=== PATIENT | female | born 1980 | race Caucasian/White ===

== ENCOUNTER 2017-08-16 11:35 | Inpatient (IN) ==
--- NOTE | 2017-08-16 11:51 | Emergency Department Note ---
Disposition Clinical Impression: Suicidal ideation Disposition: Admitted As Inpatient Condition: Fair Referrals: NONE,PCP [Primary Care Provider] - Forms: ED Satisfaction Letter Time of Disposition: 14:41 Psych HPI - General Chief Complaint: ED Psychiatric Symptoms Stated Complaint: SI/Depression/Need 1A Time Seen by Provider: 08/16/17 11:42 Source: patient, family Mode of arrival: ambulatory Limitations: no limitations Nursing Notes Reviewed: Yes Vital Signs Reviewed: Yes - History of Present Illness HPI Narrative: Patient feels depressed, suicidal, anxious. She wants to speak to a incident response specialist today. She reports several life stressors. Pt complaint: suicidal ideation, feels depressed, anxiety Onset (ago): month(s) Duration: intermittent History of similar episodes: Yes Improves with: none Worsens with: none Alleged intoxication: No Associated Psychiatric Symptoms: depression, suicidal ideation, anxiety Traumatic symptoms: denies traumatic injury Self harm or harm to others: admits thoughts of self harm, has plan, other ( Patient states she took an entire bottle of trazodone approximately 1-1/2 weeks ago) - Related Data Previous Rx's Medication Instructions Recorded Azithromycin [Azithromycin 6-Tab 250 mg PO PER PKG DI #6 tab 03/11/17 Pack] Loratadine [Allergy Relief] 10 mg PO DAILY #30 tablet 03/11/17 Promethazine/Dextromethorphan 5 ml PO Q6HR PRN #120 ml 03/11/17 [Promethazine-Dm Syrup] Cyclobenzaprine [Flexeril] 10 mg PO BID PRN #6 tablet 03/30/17 Naproxen 500 mg PO BID PRN #10 tablet 03/30/17 Ibuprofen [Motrin] 600 mg PO Q6HR PRN 7 Days tab 04/01/17 diazePAM [Valium] 5 mg PO TID PRN 2 Days tablet 04/01/17 Allergies Allergy/AdvReac Type Severity Reaction Status Date / Time Penicillins [PCN] Allergy Hives Verified 08/16/17 11:37 cephalexin [From Keflex] AdvReac Dizziness Verified 08/16/17 11:37 tuna AdvReac Vomiting Uncoded 08/16/17 11:37 All systems ED: reviewed and negative except as stated. Constitutional: Reports: as per HPI Eyes: Reports: as per HPI ENT ED: Reports: as per HPI Cardiovascular: Reports: as per HPI Respiratory: Reports: as per HPI Gastrointestinal: Reports: as per HPI Genitourinary: Reports: as per HPI Musculoskeletal: Reports: as per HPI Integumentary: Reports: as per HPI Neurological: Reports: as per HPI Psychiatric: Reports: anxiety, depression, suicidal thoughts Endocrine: Reports: as per HPI Hematological/Lymphatic: Reports: as per HPI Allergic/Immunologic: Reports: as per HPI Past Medical History - Past Medical History Source: patient Medical history: Reports: diabetes Psychiatric history: Reports: anxiety, bipolar, depression, PTSD, 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 - Social History Smoking Status: Current every day smoker Smokeless Tobacco Status: No Alcohol use: Reports: occasionally Drug use: Reports: marijuana Physical Exam - General Limitations: no limitations General appearance: alert, in no apparent distress - Head Head exam: atraumatic - Eye Eye exam: Present: normal appearance - ENT ENT exam: normal exam - Neck Neck exam: Present: normal inspection, full ROM - Chest Chest inspection: Present: normal inspection, symmetric chest wall rise - Respiratory Respiratory exam: Present: normal lung sounds bilaterally - Cardiovascular Cardiovascular exam: Present: regular rate, normal rhythm, normal heart sounds - Rectal Exam Rectal exam: Present: deferred - Extremities Exam Extremities exam: Present: normal inspection - Neurological Exam Neurological exam: Present: alert, oriented X3, CN II-XII intact - Psychiatric Psychiatric exam: Present: normal affect, normal mood - Skin Skin exam: Present: warm, dry, intact Course Course Narrative: Patient presents feeling anxious depressed and suicidal. I will attempt to clear her medically for behavioral evaluation. Vital Signs Temperature 98.1 F 08/16/17 11:38 Pulse Rate 87 08/16/17 11:38 Respiratory Rate 20 08/16/17 11:38 Blood Pressure 146/83 08/16/17 11:38 O2 Sat by Pulse Oximetry 99 08/16/17 11:38 Temperature 98.1 F 08/16/17 11:42 Pulse Rate 87 08/16/17 11:42 Respiratory Rate 20 08/16/17 11:42 Blood Pressure 146/83 08/16/17 11:42 O2 Sat by Pulse Oximetry 99 08/16/17 11:42 Oxygen Delivery Oxygen Delivery Room Air Psych - Lab Data Lab results reviewed: Yes I reviewed the patient's lab results. Result diagrams: 08/16/17 11:54 08/16/17 11:54 Lab Results 08/16/17 08/16/17 08/16/17 Range/Units 11:43 11:54 11:54 WBC 6.9 (4.3-11.1) K/mcL RBC 4.92 (3.82-4.97) M/mcL Hgb 13.3 (11.5-15.4) g/dL Hct 40.6 (35.3-44.9) % MCV 82.5 L (83.0-100.0) fL MCH 27.0 L (28.0-33.3) pg MCHC 32.8 (31.6-35.5) g/dL RDW 13.5 (11.5-14.5) % Plt Count 207 (140-400) K/mcL MPV 9.7 (9.4-12.4) fL Immature Gran % 0.3 (0-4) % Seg Neutrophils % 59.9 % Lymphocytes % 33.1 % Monocytes % 5.3 % Eosinophils % 1.3 % Basophils % 0.1 % Neutrophils # 4.1 (1.6-8.9) K/mcL Lymphocytes # 2.3 (0.6-4.6) K/mcL Monocytes # 0.4 (0.0-1.3) K/mcL Eosinophils # 0.1 (0.0-0.6) K/mcL Basophils # 0.0 (0.0-0.2) K/mcL Sodium 137 (136-145) mEq/L Potassium 3.8 (3.5-5.1) mEq/L Chloride 106 (98-107) mEq/L Carbon Dioxide 24 (23-29) mEq/L BUN 9 (6-20) mg/dL Creatinine 0.58 L (0.60-1.20) mg/dL Est GFR ( Amer) > 60 (> 60) Est GFR (Non-Af Amer) > 60 (> 60) BUN/Creatinine Ratio 16 (6-26) Glucose 284 H (70-105) mg/dL Calculated Osmolality 293 (280-300) Calcium 9.1 (8.6-10.3) mg/dL Total Bilirubin 0.4 (0.3-1.0) mg/dL Direct Bilirubin 0.1 (0.0-0.2) mg/dL Indirect Bilirubin 0.3 (0.0-1.2) mg/dL AST 8 L (13-39) Units/L ALT 13 (7-52) Units/L Alkaline Phosphatase 77 (34-104) Units/L Serum Total Protein 6.8 (6.4-8.9) g/dL Albumin 4.1 (3.5-5.7) g/dL Globulin 2.7 (2.4-3.5) g/dL Albumin/Globulin Ratio 1.5 (1.1-2.2) Urine Test Negative (Negative) Salicylates < 2.5 L (15.0-30.0) mg/dL Urine Opiates Screen (Kzttaf=473) ng/mL Acetaminophen < 10 L (10-20) mcg/mL Ur Barbiturates Screen (Kepcvv=859) ng/mL Ur Phencyclidine Scrn (Cutoff=25) ng/mL Ur Amphetamines Screen (Fwhmbg=7735) ng/mL U Benzodiazepines Scrn (Wjcgtt=964) ng/mL Urine Cocaine Screen (Cutoff= 300) ng/mL U Marijuana (THC) Screen (Cutoff = 50) ng/mL Ur Drug Screen Interp Ethyl Alcohol < 10 (Less than 10) mg/dL 08/16/17 Range/Units 12:30 WBC (4.3-11.1) K/mcL RBC (3.82-4.97) M/mcL Hgb (11.5-15.4) g/dL Hct (35.3-44.9) % MCV (83.0-100.0) fL MCH (28.0-33.3) pg MCHC (31.6-35.5) g/dL RDW (11.5-14.5) % Plt Count (140-400) K/mcL MPV (9.4-12.4) fL Immature Gran % (0-4) % Seg Neutrophils % % Lymphocytes % % Monocytes % % Eosinophils % % Basophils % % Neutrophils # (1.6-8.9) K/mcL Lymphocytes # (0.6-4.6) K/mcL Monocytes # (0.0-1.3) K/mcL Eosinophils # (0.0-0.6) K/mcL Basophils # (0.0-0.2) K/mcL Sodium (136-145) mEq/L Potassium (3.5-5.1) mEq/L Chloride (98-107) mEq/L Carbon Dioxide (23-29) mEq/L BUN (6-20) mg/dL Creatinine (0.60-1.20) mg/dL Est GFR ( Amer) (> 60) Est GFR (Non-Af Amer) (> 60) BUN/Creatinine Ratio (6-26) Glucose (70-105) mg/dL Calculated Osmolality (280-300) Calcium (8.6-10.3) mg/dL Total Bilirubin (0.3-1.0) mg/dL Direct Bilirubin (0.0-0.2) mg/dL Indirect Bilirubin (0.0-1.2) mg/dL AST (13-39) Units/L ALT (7-52) Units/L Alkaline Phosphatase (34-104) Units/L Serum Total Protein (6.4-8.9) g/dL Albumin (3.5-5.7) g/dL Globulin (2.4-3.5) g/dL Albumin/Globulin Ratio (1.1-2.2) Urine Test (Negative) Salicylates (15.0-30.0) mg/dL Urine Opiates Screen Negative ([place]=090) ng/mL Acetaminophen (10-20) mcg/mL Ur Barbiturates Screen Negative (Yflcop=976) ng/mL Ur Phencyclidine Scrn Negative (Cutoff=25) ng/mL Ur Amphetamines Screen Negative (Qktmcr=5255) ng/mL U Benzodiazepines Scrn Negative (Wefgff=209) ng/mL Urine Cocaine Screen Negative (Cutoff= 300) ng/mL U Marijuana (THC) Screen Positive H (Cutoff = 50) ng/mL Ur Drug Screen Interp See Below Ethyl Alcohol (Less than 10) mg/dL Psychiatric Medical Clearance - Medical Clearance Checklist Medical History: No Social History Section defined Current Vitals: Last Vital Signs Temp 98.1 F 08/16/17 11:42 Pulse 87 08/16/17 11:42 Resp 20 08/16/17 11:42 BP 146/83 08/16/17 11:42 Pulse Ox 99 08/16/17 11:42 Psychiatric Lab Panel: Drug Levels and Toxicity 08/16/17 08/16/17 11:54 12:30 Urine Opiates Screen Negative Acetaminophen < 10 L Ur Barbiturates Screen Negative Ur Phencyclidine Scrn Negative Ur Amphetamines Screen Negative U Benzodiazepines Scrn Negative Urine Cocaine Screen Negative U Marijuana (THC) Screen Positive H Ethyl Alcohol < 10 Abnormal Labs: Abnormal lab results MCV 82.5 fL (83.0-100.0) L 08/16/17 11:54 MCH 27.0 pg (28.0-33.3) L 08/16/17 11:54 Creatinine 0.58 mg/dL (0.60-1.20) L 08/16/17 11:54 Glucose 284 mg/dL (70-105) H 08/16/17 11:54 AST 8 Units/L (13-39) L 08/16/17 11:54 Salicylates < 2.5 mg/dL (15.0-30.0) L 08/16/17 11:54 Acetaminophen < 10 mcg/mL (10-20) L 08/16/17 11:54 U Marijuana (THC) Screen Positive ng/mL (Cutoff = 50) H 08/16/17 12:30 Statement of Medical Clearance: I have evaluated the patient, reviewed diagnostic information, and certify that the patient's medical condition is sufficiently stable that transfer to the psychiatric unit does not pose a significant risk of deterioration.
[2017-08-16 12:02] LABS: Basophils % 0.1 %; Eosinophils # 0.1 K/mcL (0.0-0.6); Eosinophils % 1.3 %; Hematocrit 40.6 % (35.3-44.9); Hemoglobin 13.3 g/dL (11.5-15.4); Immature Granulocytes % 0.3 % (0-4); Lymphocytes # 2.3 K/mcL (0.6-4.6); Lymphocytes % 33.1 %; Mean Corpuscular HGB Conc 32.8 g/dL (31.6-35.5); Mean Corpuscular Volume 82.5 fL (83.0-100.0); Mean Platelet Volume 9.7 fL (9.4-12.4); Monocytes # 0.4 K/mcL (0.0-1.3); Monocytes % 5.3 %; Neutrophils # 4.1 K/mcL (1.6-8.9); Platelet Count 207 K/mcL (140-400); Red Blood Count 4.92 M/mcL (3.82-4.97); Red Cell Distribution Width 13.5 % (11.5-14.5); Segmented Neutrophils % 59.9 %
[2017-08-16 12:28] LABS: Acetaminophen < 10 mcg/mL (10-20); Alanine Aminotransferase 13 Units/L (7-52); Albumin 4.1 g/dL (3.5-5.7); Albumin/Globulin Ratio 1.5 (1.1-2.2); Alkaline Phosphatase 77 Units/L (34-104); Aspartate Amino Transferase 8 Units/L (13-39); BUN/Creatinine Ratio 16 (6-26); Bilirubin,Direct 0.1 mg/dL (0.0-0.2); Bilirubin,Indirect 0.3 mg/dL (0.0-1.2); Bilirubin,Total 0.4 mg/dL (0.3-1.0); Blood Urea Nitrogen 9 mg/dL (6-20); Calcium 9.1 mg/dL (8.6-10.3); Carbon Dioxide 24 mEq/L (23-29); Chloride 106 mEq/L (98-107); Ethanol < 10 mg/dL (Less than 10); Globulin 2.7 g/dL (2.4-3.5); Glucose 284 mg/dL (70-105); Osmolality,Calculated 293 (280-300); Potassium 3.8 mEq/L (3.5-5.1); Salicylate < 2.5 mg/dL (15.0-30.0); Sodium 137 mEq/L (136-145); Total Protein 6.8 g/dL (6.4-8.9); eGFR For African Americans > 60 (> 60); eGFR For Non-African Americans > 60 (> 60)
[2017-08-16 13:11] LABS: Amphetamine Screen,Urine Negative ng/mL (Cutoff=1000); Barbiturate Screen,Urine Negative ng/mL (Cutoff=200); Benzodiazepines Screen,Urine Negative ng/mL (Cutoff=200); Cannabinoid Screen,Urine Positive ng/mL (Cutoff = 50); Cocaine Screen,Urine Negative ng/mL (Cutoff= 300); Opiate Screen,Urine Negative ng/mL (Cutoff=300); Phencyclidine Screen,Urine Negative ng/mL (Cutoff=25)
[2017-08-16] MEDS ORDERED: Ibuprofen 400 MG TABLET PO PRN (15:08)
[2017-08-16] MEDS ORDERED: traZODone 50 MG TABLET PO PRN (15:08)
[2017-08-16] MEDS ORDERED: Haloperidol Lactate 5 MG/ML VIAL IM PRN (15:08)
[2017-08-16] MEDS ORDERED: MOM Conc 10 ML UD.LIQ PO PRN (15:08)
[2017-08-16] MEDS ORDERED: Mag Hydrox/Al Hydrox/Simeth 30 ML UDC PO PRN (15:08)
[2017-08-16] MEDS ORDERED: *HR* LORazepam 2 MG/ML VIAL IM PRN (15:08)
[2017-08-16] MEDS ORDERED: *HR* LORazepam 1 MG TABLET PO PRN (15:08)
[2017-08-16] MEDS ORDERED: hydrOXYzine pamoate 25 MG CAPSULE PO PRN (15:08)
[2017-08-16] MEDS ORDERED: Nicotine 2 MG GUM BC PRN (15:08)
[2017-08-16] MEDS: *HR* Metformin 500 MG TABLET PO SCH (22:00)
[2017-08-16] MEDS: CETIRIZINE 10MG PO SCH (22:01)
[2017-08-17] MEDS ORDERED: Loratadine 10 MG TABLET PO SCH (09:00)
--- NOTE | 2017-08-17 09:53 | Psychiatry History & Physical ---
Date of Encounter: 08/17/17 Time of Encounter: 09:46 History of Present Illness Patient Stated Chief Complaint: SI Medicare Admission Attestation: For traditional Medicare patients the provided hospital inpatient services are reasonable and necessary and in the case of services not specified as inpatient -only under 42 CFR 419.22 (n), that they are appropriately provided as inpatient services in accordance 42 CFR 412.3. For Critical Access Hospital the patient may reasonably be expected to be discharged or transferred to a hospital within 96 hours after admission to the Critical Access Hospital. Admitted From: Home Plans for Post Hospital Care: Home History of Present Illness: Ms. Simeon is a 36 year old female who was admitted with SI. Has a longstanding history of depression and she has received multiple diagnoses over the years including Bipolar Disorder, Borderline Personality Disorder, PTSD, and OCD. Has been in counseling off and on since the age of [age] but has not seen a Psychiatrist in approx. ten years. Remembers trying Abilify, Wellbutrin , Zoloft, [place], and Buspar in the past with no effect. Reports she has attempted suicide 3-4 times in her life but this is her first admission. Physically she is treated for Type II Diabetes and Allergies. 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 Has chronic pain in her knees, back, and teeth. 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 Has support from a boyfriend and roommate. Occasionally smokes THC but no other drugs of abuse. Discussed an SNRI like Effexor. Client has trouble with motivation and lethargy so a boost from norepinephrine might be useful. Medication might also help with some of her chronic pain issues. Will get her set up with services in the community as well. Past Med Surg Social Fam HX - Past Medical History Medical history: diabetes - Past Psychiatric History Psychiatric history: Reports: anxiety, bipolar, depression, prior suicide attempt Family psychiatric history: Unknown Family History of Suicide: Unknown - Social History Smoking Status: Current every day smoker Smokeless Tobacco Status: No Alcohol use: occasionally Drug use: marijuana Medications & Allergies 3 Allergy/AdvReac Type Severity Reaction Status Date / Time Penicillins [PCN] Allergy Hives Verified 08/16/17 11:37 cephalexin [From Keflex] AdvReac Dizziness Verified 08/16/17 11:37 tuna AdvReac Vomiting Uncoded 08/16/17 11:37 Review of Systems Constitutional: Reports: weakness Eyes: Denies: eye pain, vision change Ears, Nose, Throat: Denies: ear pain, throat pain, dental pain, hearing loss, congestion Cardiovascular: Denies: chest pain, palpitations, dyspnea on exertion Respiratory: Denies: cough, dyspnea, wheezes Gastrointestinal: Denies: abdominal pain, nausea, vomiting, diarrhea, constipation Genitourinary female: Denies: urgency, dysuria, frequency, abnormal menses, dyspareunia Musculoskeletal: Reports: back pain, myalgia Integumentary: Denies: rash, lesions, pruritus Neurological: Denies: headache, weakness, numbness, memory loss Endocrine: Denies: fatigue, heat or cold intolerance Hematologic/Lymphatic: Denies: easy bruising, lymphadenopathy Allergic/Immunologic: Denies: urticaria, itchy eyes Exam - HEENT Head exam IM: Present: atraumatic Eye exam IM: Present: EOMI, normal appearance, PERRL ENT exam IM: Present: normal exam - Neurological Neurological exam: Present: CN II-XII intact - Respiratory Respiratory exam IM: Present: CTAB - GI/Abdominal GI/Abdominal exam IM: Present: normal bowel sounds, soft. Absent: tenderness - Extremities Extremities exam IM: Present: full ROM - Skin Skin exam IM: Present: dry, warm - Constitutional Vitals: Temp Pulse Resp BP Pulse Ox 97.7 F 79 16 123/71 99 08/16/17 19:49 08/16/17 19:49 08/16/17 19:49 08/16/17 19:49 08/16/17 11:42 General appearance: age & developmentally appropriate, well-groomed, well- nourished - Musculoskeletal Gait: normal Station: relaxed Strength & Tone: normal for patient - Psychiatric Patient Orientation: Yes Person, Yes Time, Yes Place Level of alertness: Alert Behavior: calm, cooperative Psychomotor activity: Normal Eye Contact: Maintains Eye Contact Mood Description: Depressed Affect description: congruent with mood Speech Volume: Normal Speech pattern: normal rate, normal rhythm, normal tone, fluent, spontaneous Language & Vocabulary: consistent with education Thought Process: Linear Thought Content: Yes Suicidal ideation, No Homicidal ideation, No Overt delusions Perceptual Disturbances: No Auditory hallucinations, No Visual hallucinations Attention Span Ability: Capable of Focused Attention Memory Description: Grossly Intact Patient Reliability: Reliable Historian Fund of knowledge: Yes abstraction ability, Yes average, Yes aware of current events Intelligence Estimate: Average Judgment: Limited Insight: Partial Results - Labs Labs: Laboratory Last Values WBC 6.9 K/mcL (4.3-11.1) 08/16/17 11:54 RBC 4.92 M/mcL (3.82-4.97) 08/16/17 11:54 Hgb 13.3 g/dL (11.5-15.4) 08/16/17 11:54 Hct 40.6 % (35.3-44.9) 08/16/17 11:54 MCV 82.5 fL (83.0-100.0) L 08/16/17 11:54 MCH 27.0 pg (28.0-33.3) L 08/16/17 11:54 MCHC 32.8 g/dL (31.6-35.5) 08/16/17 11:54 RDW 13.5 % (11.5-14.5) 08/16/17 11:54 Plt Count 207 K/mcL (140-400) 08/16/17 11:54 MPV 9.7 fL (9.4-12.4) 08/16/17 11:54 Immature Gran % 0.3 % (0-4) 08/16/17 11:54 Seg Neutrophils % 59.9 % 08/16/17 11:54 Lymphocytes % 33.1 % 08/16/17 11:54 Monocytes % 5.3 % 08/16/17 11:54 Eosinophils % 1.3 % 08/16/17 11:54 Basophils % 0.1 % 08/16/17 11:54 Neutrophils # 4.1 K/mcL (1.6-8.9) 08/16/17 11:54 Lymphocytes # 2.3 K/mcL (0.6-4.6) 08/16/17 11:54 Monocytes # 0.4 K/mcL (0.0-1.3) 08/16/17 11:54 Eosinophils # 0.1 K/mcL (0.0-0.6) 08/16/17 11:54 Basophils # 0.0 K/mcL (0.0-0.2) 08/16/17 11:54 Sodium 137 mEq/L (136-145) 08/16/17 11:54 Potassium 3.8 mEq/L (3.5-5.1) 08/16/17 11:54 Chloride 106 mEq/L (98-107) 08/16/17 11:54 Carbon Dioxide 24 mEq/L (23-29) 08/16/17 11:54 BUN 9 mg/dL (6-20) 08/16/17 11:54 Creatinine 0.58 mg/dL (0.60-1.20) L 08/16/17 11:54 Est GFR ( Amer) > 60 (> 60) 08/16/17 11:54 Est GFR (Non-Af Amer) > 60 (> 60) 08/16/17 11:54 BUN/Creatinine Ratio 16 (6-26) 08/16/17 11:54 Glucose 284 mg/dL (70-105) H 08/16/17 11:54 POC Glucose 267 mg/dL (70-99) H 08/16/17 21:06 Calculated Osmolality 293 (280-300) 08/16/17 11:54 Calcium 9.1 mg/dL (8.6-10.3) 08/16/17 11:54 Total Bilirubin 0.4 mg/dL (0.3-1.0) 08/16/17 11:54 Direct Bilirubin 0.1 mg/dL (0.0-0.2) 08/16/17 11:54 Indirect Bilirubin 0.3 mg/dL (0.0-1.2) 08/16/17 11:54 AST 8 Units/L (13-39) L 08/16/17 11:54 ALT 13 Units/L (7-52) 08/16/17 11:54 Alkaline Phosphatase 77 Units/L (34-104) 08/16/17 11:54 Serum Total Protein 6.8 g/dL (6.4-8.9) 08/16/17 11:54 Albumin 4.1 g/dL (3.5-5.7) 08/16/17 11:54 Globulin 2.7 g/dL (2.4-3.5) 08/16/17 11:54 Albumin/Globulin Ratio 1.5 (1.1-2.2) 08/16/17 11:54 Urine Test Negative (Negative) 08/16/17 11:43 Salicylates < 2.5 mg/dL (15.0-30.0) L 08/16/17 11:54 Urine Opiates Screen Negative ng/mL (Ocxcwo=553) 08/16/17 12:30 Acetaminophen < 10 mcg/mL (10-20) L 08/16/17 11:54 Ur Barbiturates Screen Negative ng/mL (Sehzpp=494) 08/16/17 12:30 Ur Phencyclidine Scrn Negative ng/mL (Cutoff=25) 08/16/17 12:30 Ur Amphetamines Screen Negative ng/mL (Akkeog=1510) 08/16/17 12:30 U Benzodiazepines Scrn Negative ng/mL (Qsqjql=885) 08/16/17 12:30 Urine Cocaine Screen Negative ng/mL (Cutoff= 300) 08/16/17 12:30 U Marijuana (THC) Screen Positive ng/mL (Cutoff = 50) H 08/16/17 12:30 Ur Drug Screen Interp See Below 08/16/17 12:30 Ethyl Alcohol < 10 mg/dL (Less than 10) 08/16/17 11:54 Assessment and Plan (1) Major depress dis, severe Current visit: Yes Status: Acute Plan: Admit inpatient for safety and stabilization, Close observation, Suicide Precautions per unit protocol, Encourage participation in unit milieu, Group Therapy, Monitor sleep, Monitor appetite Risks, benefits, side effects, alternatives discussed w/pt: Yes Patient agreeable to treatment: Yes Plans for Post Hospital Care: Home Estimated Length of Stay (Days): 4
[2017-08-17] MEDS: Venlafaxine XR (24 HR) 37.5 MG CAP.ER.24H PO SCH (09:55)
[2017-08-17] MEDS ORDERED: *HR* Metformin 500 MG TABLET PO SCH (16:00)
[2017-08-17] MEDS: *HR* Metformin 500 MG TABLET PO SCH (16:48)
[2017-08-17] MEDS: CETIRIZINE 10MG PO SCH (21:38)
[2017-08-18] MEDS: Venlafaxine XR (24 HR) 37.5 MG CAP.ER.24H PO SCH (08:49)
--- NOTE | 2017-08-18 10:16 | Psychiatry Progress Note ---
Date of Encounter: 08/18/17 Time of Encounter: 10:13 Subjective Interval history: Pleasant today. Looks tired. States she did not sleep well last night. Slept too much during the daytime and then had a new roommate admitted during the middle of the night. Claims all she wants to do is hide in her room today. Took first dose of medication. Tolerated it fine. Has a bit of an upset stomach but it is very hard to say if this is related to the medication or not. Agreeable to increasing dose today. Likely will not be effective for her at current dose but wanted to make sure she would tolerate it before giving her a higher dose. SI has improved but still struggling with mood. Claims she feels like "I'm just here." Review of Systems Constitutional: Denies: fever, chills, weakness, weight change Eyes: Denies: eye pain, vision change Ears, Nose, Throat: Denies: ear pain, throat pain, dental pain, hearing loss, congestion Cardiovascular: Denies: chest pain, palpitations, dyspnea on exertion Respiratory: Denies: cough, dyspnea, wheezes Gastrointestinal: Denies: abdominal pain, nausea, vomiting, diarrhea, constipation Musculoskeletal: Denies: joint swelling, joint pain Neurological: Denies: headache, weakness, numbness, memory loss Results - Vital Signs Vital Signs: Temp Pulse Resp BP Pulse Ox 97.2 F L 77 18 116/74 99 08/18/17 09:00 08/18/17 09:00 08/18/17 09:00 08/18/17 09:00 08/16/17 11:42 - Labs Labs: Laboratory Results - last 24 hr 08/17/17 08/17/17 08/18/17 11:47 20:13 08:50 POC Glucose 290 H 208 H 218 H Assessment and Plan (1) Major depress dis, severe Current visit: Yes Status: Acute Plan: Continue hospitalization, Close observation, Suicide Precautions per unit protocol, Encourage participation in unit milieu, Group Therapy, Monitor sleep, Monitor appetite Risks, benefits, side effects, alternatives discussed w/pt: Yes Patient agreeable to treatment: Yes Consult Discharge Plan - Plan Referrals: NONE,PCP [Primary Care Provider] - Psychiatry Exam - Constitutional Vitals: Temp Pulse Resp BP Pulse Ox 97.2 F L 77 18 116/74 99 08/18/17 09:00 08/18/17 09:00 08/18/17 09:00 08/18/17 09:00 08/16/17 11:42 General appearance: age & developmentally appropriate, well-groomed, well- nourished - Musculoskeletal Gait: normal Station: relaxed Strength & Tone: normal for patient - Psychiatric Patient Orientation: Yes Person, Yes Time, Yes Place Level of alertness: Alert Behavior: calm, cooperative Psychomotor activity: Normal Eye Contact: Maintains Eye Contact Mood Description: Depressed Affect description: congruent with mood Speech Volume: Normal Speech pattern: normal rate, normal rhythm, normal tone, fluent, spontaneous Language & Vocabulary: consistent with education Thought Process: Linear Thought Content: Yes Suicidal ideation, No Homicidal ideation, No Overt delusions Perceptual Disturbances: No Auditory hallucinations, No Visual hallucinations Attention Span Ability: Capable of Focused Attention Memory Description: Grossly Intact Patient Reliability: Reliable Historian Fund of knowledge: Yes abstraction ability, Yes aware of current events Intelligence Estimate: Average Judgment: Fair Insight: Partial
[2017-08-18] MEDS: *HR* Metformin 500 MG TABLET PO SCH (15:55)
[2017-08-18] MEDS: CETIRIZINE 10MG PO SCH (20:40)
[2017-08-19] MEDS ORDERED: Venlafaxine XR (24 HR) 75 MG CAP.ER.24H PO SCH (09:00)
--- NOTE | 2017-08-19 09:19 | Discharge Summary ---
Date of Encounter: 08/19/17 Time of Encounter: 09:00 Diagnosis - Discharge Diagnosis (1) Suicidal ideation Status: Resolved (2) Major depress dis, severe Status: Acute Medications - Discharge Medications Prescriptions: hydrOXYzine pamoate [HydrOXYzine Pamoate] 25 mg PO TID PRN 30 Days #90 capsule PRN Reason: Anxiety traZODone [TraZODone] 50 mg PO HS PRN 30 Days #30 tablet PRN Reason: Insomnia Venlafaxine XR (24 HR) [Effexor XR] 75 mg PO DAILY 30 Days #30 cap.er.24h Cetirizine HCl [All Day Allergy] 10 mg PO DAILY 08/17/17 [History] Metformin HCl [Metformin HCl ER] 500 mg PO DAILY 08/17/17 [History] Patient Taking Own Medication 1 each PO HS each 08/19/17 [Rx] Venlafaxine XR (24 HR) [Effexor XR] 75 mg PO DAILY 30 Days #30 cap.er.24h [Rx] hydrOXYzine pamoate [HydrOXYzine Pamoate] 25 mg PO TID PRN 30 Days #90 capsule 08/19/17 [Rx] traZODone [TraZODone] 50 mg PO HS PRN 30 Days #30 tablet 08/19/17 [Rx] 3 Allergy/AdvReac Type Severity Reaction Status Date / Time Penicillins [PCN] Allergy Hives Verified 08/17/17 14:51 cephalexin [From Keflex] AdvReac Dizziness Verified 08/17/17 14:51 tuna AdvReac Vomiting Uncoded 08/17/17 14:51 Provider Date of admission: 08/16/17 15:08 Primary care physician: PCP NONE Discharging clinician: Jamse Monae Psychiatry Exam - Constitutional Vitals: Temp Pulse Resp BP Pulse Ox 98.1 F 65 18 125/84 99 08/18/17 20:03 08/18/17 20:03 08/18/17 20:03 08/18/17 20:03 08/16/17 11:42 General appearance: age & developmentally appropriate, well-groomed, well- nourished - Musculoskeletal Gait: normal Station: relaxed Strength & Tone: normal for patient - Psychiatric Patient Orientation: Yes Person, Yes Time, Yes Place Level of alertness: Alert Behavior: calm, cooperative Psychomotor activity: Normal Eye Contact: Maintains Eye Contact Mood Description: Euthymic/stable Affect description: congruent with mood, full range Speech Volume: Normal Speech pattern: normal rate, normal rhythm, normal tone, fluent, spontaneous Language & Vocabulary: consistent with education Thought Process: Linear, Goal Oriented Thought Content: No Suicidal ideation, No Homicidal ideation, No Overt delusions Perceptual Disturbances: No Auditory hallucinations, No Visual hallucinations Attention Span Ability: Capable of Focused Attention Memory Description: Grossly Intact Patient Reliability: Reliable Historian Fund of knowledge: Yes abstraction ability, Yes aware of current events Intelligence Estimate: Average Judgment: Fair Insight: Partial Hospital Course Hospital course: Ms. Simeon is a 36 year old female Chief complaint: The patient was admitted for suicidal ideation in the emergency room. History of present illness: The patient is admitted from the emergency room. She had several unsuccessful trials of medications on an outpatient basis. The patient was not involved in psychiatric treatment or psychotherapy and the 10 years prior to admission. The patient met with the attending physician. The patient was started on a dose of venlafaxine. The patient was observed and did not develop significant worsening of suicidal ideation and did not have psychosis. The patient was scheduled for discharge follow-up. She will be discharged on the venlafaxine with as needed trazodone and hydroxyzine. The patient will be encouraged to follow up with psychotherapy and medication management as part of her treatment. While she does have major depression recurrent severe. She did not have suicidal ideation on discharge Does patient wish to continue nicotine replacement upon disc: No - Time Spent with Patient Total time spent providing and/or coordinating discharge services: Less than 30 minutes Assessment and Plan - Patient/Caregiver Discharge Instructions Activity: resume usual activities as tolerated Diet: regular diet - Follow up Plan Follow up with: NONE,PCP [Primary Care Provider] - Overall status at discharge: Stable Disposition: Home, Self-Care Quality - Multiple Antipsychotics Patient discharged on 2 or more antipsychotic medications: No Procedures - Procedures Procedures: Medication Management, Crisis Stabilization, Supportive Therapy, Group Therapy, Psychoeducational Therapy
[2017-08-19 10:10] VITALS: BP 116/73
== END 2017-08-19 13:18 | disposition home or self-care (01) | DRG 751 ==
LOC: 1ANU 11:35 → EMEROO 11:35 → SUATTDRO 15:08 → 1ANU 15:43
PROVIDERS: ADMIT Psychiatry & Neurology Psychiatry; ATTEND Psychiatry & Neurology Forensic Psychiatry